=== PATIENT | female | born 1995 | race Two or more races ===

== ENCOUNTER 2017-09-19 09:13 | Outpatient (CLI) | payer OTHER | END 2017-09-19 10:00 | disposition home or self-care (01) | LOC: NUCLEAR 09:13 | DX: M46.1 Sacroiliitis, not elsewhere classified (principal) | CPT/HCPCS: 78315; 78306; A9503 ==

== ENCOUNTER 2019-01-27 12:21 | Outpatient (CLI) | payer OTHER ==
[~2019-01-27] VITALS: Ht 160 cm; Wt 47.2 kg
== END 2019-01-27 12:40 | disposition home or self-care (01) ==
LOC: OFIC 805 12:21
DX: G50.1 Atypical facial pain (principal); H93.233 Hyperacusis, bilateral

== ENCOUNTER 2021-07-11 14:48 | Outpatient (CLI) | payer OTHER | END 2021-07-11 14:55 | disposition home or self-care (01) | LOC: PPH VACUNA 14:48 | PROVIDERS: ATTEND Emergency Medicine Pediatric Emergency Medicine | DX: Z23 Encounter for immunization (principal) ==